=== PATIENT | male | born 1935 | race Caucasian/White ===

== ENCOUNTER 2016-08-15 06:01 | Day surgery (SDC) | payer OTHER ==
[~2016-08-15] VITALS: Ht 177.8 cm; Wt 103.2 kg
[2016-08-15] MEDS ORDERED: SODIUM CHLORIDE 0.9% 1,000 ML IV ONE ×2 (06:20→06:30)
[2016-08-15 07:11] LABS: GLUCOSE,POINT OF CARE 91 MG/DL (70-110)
[2016-08-15] MEDS ORDERED: FentaNYL CITRATE-PF 100 MCG/2 ML VIAL ONE (07:57)
[2016-08-15] MEDS ORDERED: MIDAZOLAM HCL 2 MG/2 ML VIAL ONE (07:57)
[2016-08-15] MEDS ORDERED: MethylPREDNISolone SOD SUCC 125 MG/2 ML VIAL IVP ONE (08:30)
[2016-08-15] MEDS ORDERED: MethylPREDNISolone SOD SUCC 125 MG/2 ML VIAL ONE (08:47)
[2016-08-15] MEDS ORDERED: ALBUTEROL SULFATE 2.5 MG/0.5 ML NEB SOLUTION NEB ONE (09:30)
[2016-08-15] MEDS ORDERED: LIDOCAINE HCL 2% 30 ML JELLY TP ONE (16:55)
[2016-08-15] MEDS ORDERED: BENZOCAINE 20% 50 MCG/SPRAY 57 GM TP ONE (16:55)
[2016-08-15] MEDS ORDERED: LIDOCAINE HCL 4% 50 ML SOLUTION TP ONE (16:55)
[2016-08-15] MEDS ORDERED: OXYGEN THERAPY IH SCH (20:00)
== END 2016-08-15 10:05 | disposition home or self-care (01) ==
LOC: SURGERY 06:01
PROVIDERS: ATTEND Internal Medicine Critical Care Medicine
DX: B37.0 Candidal stomatitis (principal); I10 Essential (primary) hypertension; I25.2 Old myocardial infarction; J44.9 Chronic obstructive pulmonary disease, unspecified; G47.33 Obstructive sleep apnea (adult) (pediatric); I50.9 Heart failure, unspecified; I25.10 Atherosclerotic heart disease of native coronary artery without angina pectoris
CPT/HCPCS: 31623; 31624; 71010; 82962; 87015 ×2; 87070; 87101; 87205; 87220; 93005; J2250; J2930; J3010; J7030; 88108; 88312